=== PATIENT | male | born 1985 | race Caucasian/White ===

== ENCOUNTER 2021-07-13 08:43 | Day surgery (SDC) | payer BC ==
[2021-07-13] VITALS (9 sets, daily range): BP systolic 125–159; BP diastolic 45–87; PULSE 16–65; TEMP 98.2–98.7
[~2021-07-13] VITALS: Ht 180.3 cm; Wt 136.0 kg
[2021-07-13 09:05] LABS: COLLECTION METHOD CLEAN CATCH
[2021-07-13 09:23] LABS: MUCOUS Present (NOT PRESENT); PH 7 (5-8); SQUAMOUS EPITHELIAL None Seen /hpf (0-10); URINE APPEARANCE Clear (CLEAR/HAZY); URINE BACTERIA None Seen /hpf (NONE SEEN); URINE BILIRUBIN Negative (NEGATIVE); URINE BLOOD 2+ (NEGATIVE); URINE COLOR Yellow (YELLOW); URINE GLUCOSE Negative (NEGATIVE); URINE KETONE Negative (NEGATIVE); URINE LEUKOCYTE ESTERASE Negative (NEGATIVE); URINE NITRATE Negative (NEGATIVE); URINE PROTEIN(semi-quant) Negative (NEGATIVE); URINE RBC >50 /hpf (0-2); URINE UROBILINOGEN Negative (NEGATIVE)
[2021-07-13 09:58] LABS: BILIRUBIN,TOTAL 1.3 mg/dL (0.2-1.2); C-REACTIVE PROTEIN 4.46 mg/dL (0.00-0.50); CALCIUM 9.2 mg/dL (8.4-10.2); CREATININE, serum 1.24 mg/dL (0.72-1.25); POTASSIUM 3.9 mmol/L (3.5-4.5); TOTAL PROTEIN 7.9 gm/dL (6.2-8.1)
[2021-07-13 10:03] LABS: BASO % 0.4 % (0.0-2.0); EOS # 0.1 K/mm3 (0.0-0.7); EOS % 0.4 % (0.0-4.0); GRAN % 79.3 % (42.2-75.2); HEMATOCRIT 45.2 % (42.0-52.0); HEMOGLOBIN 15.1 g/dl (13.5-18.0); LYMPH # 1.5 K/mm3 (1.2-3.4); LYMPH % 12.9 % (20.0-51.0); MEAN CELL VOLUME 89 fl (80.0-100.0); MEAN CORPUSCULAR HEMOGLOBIN 30 pg (27-31); MEAN CORPUSCULAR HGB CONC 33 g/dl (33.0-37.0); MONO # 0.8 K/mm3 (0.1-0.6); MONO % 6.6 % (1.7-9.3); PLATELET COUNT 278 K/mm3 (130-400); RED BLOOD COUNT 5.09 M/mm3 (4.20-5.60); REDCELL DISTRIBUTION WIDTH-CV 12.2 % (11.5-14.5)
[2021-07-13] MEDS ORDERED: TENORMIN100 MG PO (12:28)
[2021-07-13] MEDS ORDERED: ZYLOPRIM 300MG300 MG PO (12:28)
--- NOTE | 2021-07-13 12:40 | NUR ---
Pt resting on cart, right side lying. returned from leaving unit briefly and at bedside. Call light remains in reach.
--- NOTE | 2021-07-13 16:30 | NUR ---
New orders recieved from [facility] ADMINISTRATOR to provide 50 mcg for fentanyl now, up to 100 mcg for pain relief. RN verbalied understanding. PT remains on right side. Call metzger within reach.
--- NOTE | 2021-07-13 17:06 | NUR ---
was in the PT's room.
--- NOTE | 2021-07-13 17:12 | NUR ---
PT taken to the OR
[2021-07-13] MEDS ORDERED: PYRIDIUM 100MG100 MG PO (18:03)
[2021-07-13] MEDS ORDERED: NORCO 325 MG-51 TAB PO (18:04)
--- NOTE | 2021-07-13 23:21 | NUR ---
PATIENT UP TO ROOM 322. ALERT AND ORIENTED. POST OP VITALS COMPLETED. AMBULATED TO BATHROOM WITH STANDBY ASSIST AND VOIDED. PATIENT C/O FEELING LIKE HE NEEDS TO VOID AND ABD CRAMPING. PRN B&O SUPPOSITORY AND TYLENOL GIVEN WITH LITTLE RELIEF. CALL PLACED TO DR BOOTHE, ORDER FOR FLUIDS AND PYRIDIUM GIVEN. PATIENT HAS VOIDED BLOODY URINE SEVERAL MORE TIMES SINCE THEN AND STATES HE IS FEELING RELIEF FROM THE PAIN/DISCOMFORT. CURRENTLY RESTING IN BED, CALL LIGHT IN REACH.
[2021-07-14 04:52] VITALS: BP 120/58; PULSE 48; TEMP 97.6
[2021-07-14 07:53] VITALS: BP 154/65; PULSE 98; TEMP 98.1
--- NOTE | 2021-07-14 09:24 | NUR ---
Pt had complaints of his IV bothering him earlier this am. Pt requested to have iv removed. INT removed, gauze applied. Pt has showered and is asking about discharge
--- NOTE | 2021-07-14 09:37 | NUR ---
Patient has discharge orders in. SW collaborated with RN who advised patient will return home today and has no discharge planning needs.
[2021-07-14 11:29] VITALS: BP 122/69; PULSE 63; TEMP 98.1
--- NOTE | 2021-07-14 11:40 | NUR ---
Reviewed discharge instructions with pt, present. Reviewed medications and informed him that the urology office would call to make follow up appointment. Pt verbalized understanding, pt escorted out
--- NOTE | 2021-07-14 12:50 | NUR ---
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
== END 2021-07-14 12:06 | disposition home or self-care (01) ==
LOC: COL.ER 08:43 → SDCO 10:36 → SURG 19:05 → SDCO 07-14 12:06
PROVIDERS: Family Medicine
DX: N20.1 Calculus of ureter (principal); Q63.1 Lobulated, fused and horseshoe kidney; G47.33 Obstructive sleep apnea (adult) (pediatric)
CPT/HCPCS: OP; C1769; C2617; J0696; J1100; J1170; J1885; J2405; J2704; J3010; J7030; J7120; Q9967